=== PATIENT | female | born 1990 | race Caucasian/White ===

== ENCOUNTER 2021-04-13 12:54 | Emergency (ER) | payer BC ==
[~2021-04-13] VITALS: Ht 175.3 cm; Wt 65.8 kg
--- NOTE | 2021-04-13 13:05 | NUR ---
BIBSELF FOR TREMORS, HEADACHE, VOMITING x 4 TODAY, DRY HEAVING, "FEELING PANIC", AND SWEATY. PATIENT ON ALCOHOL WITHDRAWAL. LAST INATKE OF ALCOHOL WAS THIS MORNING. TO ER BED 11, HOOKED TO MONITOR, VSS. CHANGED TO HOSP GOWN, WARM BLANKET PROVIDED. PATIENT AAO x 4. BREATHING EVEN AND UNLABORED. AWAITING MD CHIANG
--- NOTE | 2021-04-13 13:22 | NUR ---
DR CUEVAS AT BEDSIDE
[2021-04-13 13:54] LABS: BASOPHILS # (AUTO) 0.1 K/uL (0.0-0.2); BASOPHILS % (AUTO) 0.6 % (0.0-2.0); EOSINOPHILS % (AUTO) 0.1 % (0.0-6.0); HEMATOCRIT 40 % (33-45); HEMOGLOBIN 13.7 g/dL (11.5-14.8); LYMPHOCYTES # (AUTO) 1.6 K/uL (0.8-4.8); LYMPHOCYTES % (AUTO) 16.4 % (20.0-44.0); MEAN CORPUSCULAR HGB CONC 34 g/dl (31.0-36.0); MEAN CORPUSCULAR VOLUME 99 fL (82-100); MONOCYTES # (AUTO) 0.4 K/uL (0.1-1.30); MONOCYTES % (AUTO) 4.3 % (2.0-12.0); NEUTROPHILS # (AUTO) 7.6 K/uL (1.8-8.9); NEUTROPHILS % (AUTO) 78.6 % (43.0-81.0); PLATELET COUNT (AUTO) 322 K/uL (150-450); RED BLOOD CELL COUNT(AUTO) 4.04 MIL/uL (4.0-5.2); WHITE BLOOD COUNT (AUTO) 9.7 K/uL (4.3-11.0)
[2021-04-13] MEDS: IV NS 0.9% 1,000 ML IV ONE (14:03)
[2021-04-13] MEDS ORDERED: ONDANSETRON 4 MG TAB.RAPDIS ONE (14:04)
[2021-04-13] MEDS ORDERED: LORAZEPAM 1 MG TABLET ONE (14:04)
[2021-04-13] MEDS: LORAZEPAM 1 MG TABLET PO ONE (14:07)
[2021-04-13] MEDS: ONDANSETRON HCL 4 MG/5 ML SOLUTION PO ONE (14:07)
[2021-04-13 14:13] LABS: ALANINE AMINOTRANSFERASE 35 U/L (12-78); ALBUMIN 4.3 g/dL (3.4-5.0); ALCOHOL, BLOOD 13 mg/dL (0-0); ALKALINE PHOSPHATASE 71 U/L (46-116); ASPARTATE AMINOTRANSFERASE 32 U/L (15-37); BILIRUBIN,DIRECT 0.2 mg/dL (0.0-0.2); BILIRUBIN,TOTAL 0.7 mg/dL (0.2-1.0); CALCIUM, SERUM 8.9 mg/dL (8.5-10.1); CARBON DIOXIDE 23 mmol/L (21-32); CHLORIDE 99 mmol/L (98-107); CREATININE 0.8 mg/dL (0.6-1.3); GLUCOSE 100 mg/dL (74-106); LIPASE 74 U/L (73-393); POTASSIUM 3.9 mmol/L (3.5-5.1); SODIUM SERUM 138 mmol/L (136-145); TOTAL PROTEIN, SERUM 8.4 g/dL (6.4-8.2); UREA NITROGEN, BLOOD 14 mg/dL (7-18)
[2021-04-13] MEDS ORDERED: LORAZEPAM INJ 2 MG/ML VIAL ONE (15:15)
[2021-04-13] MEDS: LORAZEPAM INJ 2 MG/ML VIAL IV ONE (15:23)
[2021-04-13] MEDS ORDERED: CHLO25CA22 PO (16:10)
--- NOTE | 2021-04-13 16:36 | NUR ---
The patient is alert and oriented x4. Denies pain. In room air and denies SOB. Respiration regular and unlabored. IV removed. Catheter intact and site benign. Pressure and 4x4 applied to site. No bleeding noted.Patient discharged to home in stable condition. Written and verbal after care instructions given. Patient verbalizes understanding of instruction.
[2021-04-13 16:40] VITALS: BP 135/82
== END 2021-04-13 16:40 | disposition home or self-care (01) ==
LOC: ER 12:54
DX: F10.239 Alcohol dependence with withdrawal, unspecified (principal); Y90.9 Presence of alcohol in blood, level not specified
CPT/HCPCS: 36415; 80048; 80076; 80320; 83690; 84484; 84703; 85025; 96361; 96374; 99283; J2060; J7030; Q0162; G0480